=== PATIENT | male | born 2005 | race Caucasian/White ===

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

== ENCOUNTER 2024-07-04 12:51 | Outpatient (CLI) | payer BC, SELFPAY | END 2024-07-04 12:52 | disposition home or self-care (01) | LOC: NFLDREF 07-07 10:39 | PROVIDERS: PCP Family Medicine; Referring Provider Family Medicine; Visit Provider Physician Assistant | DX: L02.216 Cutaneous abscess of umbilicus (principal); B95.61 Methicillin susceptible Staphylococcus aureus infection as the cause of diseases classified elsewhere | CPT/HCPCS: 87070; 87186 ==

== ENCOUNTER 2024-09-21 14:48 | Outpatient (CLI) | payer BC, SELFPAY ==
--- OUTSIDE RECORDS SUMMARY | 2024-09-21 14:52 | XMS_ITS | Clinical Summary ---
Author Organization [facility] Address [place], [place] [address] Care Team Providers Care Set Rider Name Role Phone Pcp, No Primary Care Provider Unavailabl e Allergies No known active allergies Medications Medication Sig Dispensed Refills Start Date End Date Status triamcinolone (ARISTOCORT; KENALOG) 0.1 % cream 1 application topically twice a day* 07/29/2024 Active Encounters Date Type Department Care Team Description 09/07/2024 1:20 PM [employer] Ancillary Procedure [facility] [id number] [place] [phone] 09/07/2024 12:25 PM [employer] Office Visit [facility] [place] [id number] [place] [phone] Sreedhar Sands PA Finger Injury 09/07/2024 Travel from Last 3 Months Social History Tobacco Use Types Packs/Day Years Used Date Smoking Tobacco: Never Passive Smoke Exposure: Never Smokeless Tobacco: Never Tobacco Cessation:Counseling Given: Not Answered Alcohol Use Standard Drinks/Week Comments Never 0 (1 standard drink = 0.6 oz pur e alcohol) Sex and Gender Information Value Date Recorded Sex Assigned at Not on file Gender Identity Not on file Sexual Orientation Not on file Obstetrics History Last Filed Vital Signs Vital Sign Reading Time Taken Comments Blood Pressure 128/64 09/07/2024 12:56 PM [employer] Pulse 78 09/07/2024 12:56 PM [employer] Temperature 36.8 C (98.2 F) 09/07/2024 12:56 PM [employer] Respiratory Rate 14 09/07/2024 12:56 PM [employer] Oxygen Saturation 99% 09/07/2024 12:56 PM [employer] Inhaled Oxygen Concentration - - Weight 79.4 kg (175 lb) 09/07/2024 12:56 PM [employer] Height - - Body Mass Index - - Plan of Treatment Health Maintenance Due Date Last Done Comments Well Child Check for age 3-20 07/20/2007 Tdap 2015 Depression screening for age 12+ 2016 HIV for age 15-65 2019 HPV series for age 9-26 (1 - Male 3-dose series) 2019 BMI (ht and wt on same day) for age 18+ 2022 Hepatitis C screening for ag e 18-79 2022 COVID-19 vaccine series ( season) 2024 03/11/2021, 02/16/2021 Influenza for age 9-49 06/19/2024 Tetanus booster 2024 Meningococcal series for age 11-21 Aged Out No longer eligible b ased on patient's age to complete this topic Pneumococcal series for age 6-64 Aged Out No longer eligible b ased on patient's age to complete this topic Procedures Procedure Name Priority Date/Time Associated Diagnosis Comments XR FINGER 3 VIEWS RIGHT STAT 09/07/2024 1:29 PM [employer] Finger pain, right from Last 3 Months Results * XR FINGER 3 VIEWS RIGHT (09/07/2024 1:29 PM [employer]) Anatomical Region Laterality Modality Finger Computed Radiogr aphy 09/07/2024 1:29 PM [employer] Impressions 09/07/2024 1:34 PM [employer] Normal joint spaces and alignment. No fracture. Narrative 09/07/2024 1:34 PM [employer] For Patients: As a result of the Cures Act, medical imaging exams and procedure reports are released immediately into your electronic medical record. You may view this report before your referring provider. If you have questions, please contact your health care provider. EXAM: XR FINGER 3 VIEWS RIGHT LOCATION: [facility] DATE: 09/07/2024 INDICATION: Finger Pain, Right COMPARISON: None. Procedure Note So, Kehinde Ponce MD - 09/07/2024 For Patients: As a result of the Cures Act, medical imagingexams and procedure reports are released immediately into your electronicmedical record. You may view this report before your referring provider.If you have questions, please contact your health care provider. EXAM: XR FINGER 3 VIEWS RIGHT LOCATION: [facility] DATE: 09/07/2024 INDICATION: Finger Pain, Right COMPARISON: None. IMPRESSION: Normal joint spaces and alignment. No fracture. Sreed[facility] from Last 3 Months Care Teams Set Rider Relationship Specialty Start Date End Date Pcp, No . PCP - General 09/07/24
== END 2024-09-21 14:49 | disposition home or self-care (01) ==
PROVIDERS: PCP Family Medicine; Visit Provider Family Medicine
DX: R63.4 Abnormal weight loss (principal)
CPT/HCPCS: 80053; 84443